=== PATIENT | female | born 1985 | race Caucasian/White ===

== ENCOUNTER 2016-11-06 01:32 | Emergency (ER) | payer BC, OTHER ==
[2016-11-06 02:03] LABS: Manual Entry Verification CAR0052; UR Preg Internal Control QC Line Present; UR Preg Kit Lot# 7010135
--- NOTE | 2016-11-06 02:16 | ED ---
GI/ HPI - HPI Summary HPI Summary: 31F presents with UTI symptoms for a day. Admits to dysuria, frequency, and urgency. has pelvic pain. Denies any flank pain or fever. States has been on Keflex in past for UTI and seems to work best. she denies any n/v/d/c. She denies any vaginal discharge or history of STDs. She is not on OCP. She did take an azo. - History of Current Complaint Chief Complaint: EDUrogenitalProblems Time Seen by Provider: 11/06/16 01:46 Stated Complaint: POSSIBLE UTI Pain Intensity: 7 - Allergy/Home Medications Allergies/Adverse Reactions: Allergies Allergy/AdvReac Type Severity Reaction Status Date / Time No Known Allergies Allergy Verified 10/27/15 11:55 PMH/Surg Hx/FS Hx/Imm Hx Endocrine/Hematology History: Denies: Hx Anticoagulant Therapy Respiratory History: Denies: Hx Asthma Infectious Disease History: No Infectious Disease History: Denies: History Other Infectious Disease, Traveled Outside the [place] in Last 30 Days - Family History Known Family History: Positive: Hypertension - Social History Alcohol Use: None Substance Use Type: Reports: None Smoking Status (MU): Never Smoked Tobacco Review of Systems Negative: Fever Negative: Chest Pain Negative: Shortness Of Breath Negative: Vomiting, Nausea Positive: dysuria, frequency. Negative: flank pain All Other Systems Reviewed And Are Negative: Yes Physical Exam Triage Information Reviewed: Yes Vital Signs On Initial Exam: Initial Vitals Temp Pulse Resp BP Pulse Ox 97.8 F 80 18 135/81 98 11/06/16 01:40 11/06/16 01:40 11/06/16 01:40 11/06/16 01:40 11/06/16 01:40 Vital Signs Reviewed: Yes Appearance: Positive: Well-Appearing Skin: Positive: Warm, Dry Head/Face: Positive: Normal Head/Face Inspection Eyes: Positive: Normal, Conjunctiva Clear Respiratory/Lung Sounds: Positive: Clear to Auscultation, Breath Sounds Present Cardiovascular: Positive: Normal, RRR Abdomen Description: Positive: Nontender, Soft Bowel Sounds: Positive: Present Diagnostics - Vital Signs Vital Signs Temp Pulse Resp BP Pulse Ox 11/06/16 01:40 97.8 F 80 18 135/81 98 - Laboratory Lab Results: Lab Results 11/06/16 Range/Units 01:45 Urine Color Pending Urine Appearance Pending Urine pH Pending Ur Specific [place] Pending Urine Protein Pending Urine Ketones Pending Urine Blood Pending Urine Nitrate Pending Urine Bilirubin Pending Urine Urobilinogen Pending Ur Leukocyte Esterase Pending Urine Glucose Pending Urine Ascorbic Acid Pending Urine Test Negative (Negative) Lab Statement: Any lab studies that have been ordered have been reviewed, and results considered in the medical decision making process. GIGU Course/Dx - Course Course Of Treatment: 31F presents with UTI symptoms for a day. denies any flank pain, n/v, or fever. on exam abdomen nontender and neg CVA tenderness. neg. wbc present. could not complete rest due to azo use. will treat with keflex as says it is usually sensitive to it. patient understands and agrees with plan - Diagnoses Differential Diagnoses - Female: , Urinary Tract Infection, Ureteral Calculi Provider Diagnoses: Urinary tract infection Discharge - Discharge Plan Condition: Good Disposition: HOME Prescriptions: Cephalexin CAP* [Keflex CAP*] 500 mg PO BID #13 cap Patient Education Materials: Urinary Tract Infection in Women (ED) Referrals: Margaret Jimenez MD [Primary Care Provider] - Additional Instructions: Take Keflex twice a day for 7 days Drink plenty of fluids Return to ED if develop flank pain, fever, or any new or worseing symptoms
[2016-11-06 02:40] LABS: Urine Bacteria Absent (Absent)
[2016-11-06] MEDS ORDERED: Phenazopyridine TAB* 100 MG PO ONE (02:42)
[2016-11-06] MEDS ORDERED: Cephalexin CAP* 500 MG PO ONE (02:42)
[2016-11-06 03:05] VITALS: BP 119/71
== END 2016-11-06 02:57 | disposition home or self-care (01) ==
LOC: ED 01:32
DX: N39.0 Urinary tract infection, site not specified (principal); R30.0 Dysuria
CPT/HCPCS: 81003; 81015; 81025; 87086; 99282; A9270-GY

== ENCOUNTER 2018-03-05 17:25 | Emergency (ER) | payer BC ==
[2018-03-05] MEDS ORDERED: Bupivacaine 0.25% SDV PF* 10 ML VIAL INJ ONE ×2 (18:33→18:38)
[2018-03-05] MEDS ORDERED: Acetaminophen TAB* 325 MG PO ONE (18:34)
[2018-03-05] MEDS ORDERED: Cyclobenzaprine TAB* 10 MG PO ONE (18:34)
[2018-03-05 18:44] VITALS: BP 135/87
--- NOTE | 2018-03-05 18:56 | UC ---
Back Pain HPI - HPI Summary HPI Summary: 32-year-old female presents with chief complaint of back pain. 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 She began developing right-sided low back pain at work. Now, the pain is worse after returning home from work and also she occasionally gets radiation of pain down her right thigh. She denies any urinary symptoms, numbness/weakness or difficulty with gait. She did have a back injury at age 24. Menstrual period now. - History of Current Complaint Stated Complaint: BACK PAIN Time Seen by Provider: 03/05/18 18:25 Hx Obtained From: Patient Hx Last Menstrual Period: 10/27/15 - Allergies/Home Medications Allergies/Adverse Reactions: Allergies Allergy/AdvReac Type Severity Reaction Status Date / Time No Known Allergies Allergy Verified 10/27/15 11:55 Home Medications: Home Medications Control 1 tab PO DAILY 03/05/18 [History] Ibuprofen 400 mg PO Q8HR PRN 03/05/18 [History Confirmed 03/05/18] PMH/Surg Hx/FS Hx/Imm Hx Previously Healthy: Yes - freq UTIs Other History Of: Negative For: Anticoagulant Therapy - Surgical History Surgical History: None - Family History Known Family History: Positive: Hypertension - Social History Alcohol Use: None Substance Use Type: None Smoking Status (MU): Never Smoked Tobacco Review of Systems Constitutional: Negative Gastrointestinal: Negative Genitourinary: Negative Motor: Decreased ROM Neurovascular: Other - radiated pain into R thigh Musculoskeletal: Decreased ROM, Other: - R sided low back pain Neurological: Negative All Other Systems Reviewed And Are Negative: Yes Physical Exam Triage Information Reviewed: Yes Appearance: Well-Appearing, No Pain Distress ENT: Positive: Normal ENT inspection Respiratory: Positive: Lungs clear Cardiovascular: Positive: RRR Abdomen Description: Positive: Nontender Musculoskeletal: Positive: Strength Intact, ROM Intact, Other: - TTP R low lumbar musculature with spasm. Neurological: Positive: Muscle Tone Normal, Other: - Neg conrado straight leg raises. L st leg produces R low back pain. No saddle numbess. Normal gait. 2+ patellar DTRs. Skin Exam: Other - tinea versicolor hypopig spots on back Procedures - Procedure Summary Procedure Summary: Trigger Point Injection Re: Back pain, Right Desc: The patient was verbally consented and a timeout was performed in conjunction with nursing staff. The patient was laid supine and the right low lumbar musculature was cleaned with alcohol. The patient was injected in 3 sites with a total of 10 cc of 0.25% bupivacaine. The medication was massaged through the tissues and produced good pain relief. She tolerated this well without complication. Back Pain Course/Dx - Course Course Of Treatment: Likely purely muscular with some degree of piriformis syndrome. Greatly improved with trigger point injection. Tylenol/Flexeril here. Cont nightly muscle relaxation, refer to chiropractor. - Differential Dx/Diagnosis Differential Diagnosis/HQI/PQRI: Compressive Cord Syndrome, Herniated Disc, Strain, Sprain Provider Diagnoses: lumbar strain, Right. Piriformis syndrome. Tinea versicolor Discharge - Sign-Out/Discharge Documenting (check all that apply): Patient Departure All imaging exams completed and their final reports reviewed: No Studies - Discharge Plan Condition: Improved Disposition: HOME Prescriptions: Cyclobenzaprine (NF) [Cyclobenzaprine 5 MG (NF)] 5 mg PO TID PRN #10 tab PRN Reason: muscle pain Dexamethasone [Decadron] 6 mg PO DAILY #4 tablet Naproxen [Naproxen 500 mg tab] 500 mg PO BID PRN #10 tablet.dr PRN Reason: Pain Patient Education Materials: Low Back Strain (ED), Piriformis Syndrome (ED) Referrals: Margaret Jimenez MD [Primary Care Provider] - Additional Instructions: Ice, massage, range of motion exercises. nurse care manager may help. Cyclobenzaprene (1-2) taken 2hrs before bed works best. Return with numbness/ weakness, difficulty with bowel or bladder, worse or other concerns. - Billing Disposition and Condition Condition: IMPROVED Disposition: Home - Attestation Statements Document Initiated by Scribe: No
== END 2018-03-05 19:10 | disposition home or self-care (01) ==
LOC: UCEAST 17:25
DX: S39.012A Strain of muscle, fascia and tendon of lower back, initial encounter (principal); X50.9XXA Other and unspecified overexertion or strenuous movements or postures, initial encounter; Y93.B9 Activity, other involving muscle strengthening exercises; Y92.9 Unspecified place or not applicable
CPT/HCPCS: 99202; A9270-GY; G0463; J3490